=== PATIENT | male | born 1955 | race Caucasian/White ===

== ENCOUNTER 2017-10-22 19:23 | Inpatient (IN) | payer OTHER ==
[2017-10-22] MEDS ORDERED: BISACODYL (EC) 5 MG TAB PO (21:00)
[2017-10-22] MEDS ORDERED: NITROGLYCERIN (SL) 0.4 MG TAB SL (21:00)
[2017-10-22] MEDS ORDERED: DOCUSATE SODIUM 100 MG CAP PO (21:00)
[2017-10-22] MEDS ORDERED: morphine 2 MG INJ IV (21:00)
[2017-10-22] MEDS ORDERED: NACL 0.9% 3 ML SYG IV (21:00)
[2017-10-22] MEDS: SOD CHLORIDE 0.9% 1,000 ML IV (21:27)
[2017-10-22 21:59] LABS: ADD MAN DIFF? NO
[2017-10-22 22:01] LABS: BASOPHILS % 0.5 % (0.0-2.0); EOSINOPHILS # 0.3 10^3/ul (0.0-0.5); EOSINOPHILS % 3.9 % (0.0-7.0); HEMATOCRIT 38.3 % (42.0-52.0); HEMOGLOBIN 11.3 g/dl (14.0-18.0); LYMPHOCYTES # 1.2 10^3/ul (0.8-2.9); MEAN CORPUSCULAR HEMOGLOBIN 22.6 pg (29.0-33.0); MEAN CORPUSCULAR HGB CONC 29.5 g/dl (32.0-37.0); MEAN CORPUSCULAR VOLUME 76.8 fl (82.0-101.0); MEAN PLATELET VOLUME 9.7 fl (7.4-10.4); MONOCYTE # 1.2 10^3/ul (0.3-0.9); MONOCYTES % 14.9 % (0.0-11.0); NEUTROPHIL # 5.5 10^3/ul (1.6-7.5); NEUTROPHILS % 66.3 % (39.0-77.0); PLATELET COUNT 236 10^3/UL (140-415); RED BLOOD COUNT 4.99 10^6/ul (4.70-6.10); RED CELL DISTRIBUTION WIDTH 19.9 % (11.5-14.5)
[2017-10-22 22:01] LABS: WHITE BLOOD COUNT 8.3 10^3/ul (4.8-10.8)
[2017-10-22 22:20] LABS: HEMOGLOBIN A1C 6.9 % (0-5.9)
[2017-10-22 22:26] LABS: ALANINE AMINOTRANSFERASE 25 IU/L (13-69); ALBUMIN 4.1 g/dl (3.3-4.9); ALBUMIN/GLOBULIN RATIO 1.57; ALKALINE PHOSPHATASE 137 IU/L (42-121); ANION GAP 17 (8-16); ASPARTATE AMINO TRANSFERASE 16 IU/L (15-46); BILIRUBIN,INDIRECT 0.4 mg/dl (0-1.1); BILIRUBIN,TOTAL 0.4 mg/dl (0.2-1.3); BLOOD UREA NITROGEN 25 mg/dl (7-20); CALCIUM 8.8 mg/dl (8.4-10.2); CARBON DIOXIDE 28 mmol/L (21-31); CHLORIDE 101 mmol/L (97-110); CHOL/HDL RATIO 2.1 RATIO; CHOLESTEROL 56 mg/dl (100-200); CREATINE KINASE 41 IU/L (23-200); GLUCOSE 105 mg/dl (70-220); HDL CHOLESTEROL 26 mg/dl (30-78); LDL CHOLESTEROL,CALCULATED 15 mg/dl; POTASSIUM 4.3 mmol/L (3.5-5.1); SODIUM 142 mmol/L (135-144); TOTAL PROTEIN 6.7 g/dl (6.1-8.1); TRIGLYCERIDES 73 mg/dl (0-149)
[2017-10-22 22:38] LABS: TROPONIN-I 0.028 ng/ml (0.00-0.12)
[2017-10-22 22:40] LABS: CK-MB 1.23 ng/ml (0.0-2.4)
[2017-10-22] MEDS: LORAZEPAM 2 MG INJ IV (23:03)
[2017-10-23 06:02] LABS: ADD MAN DIFF? NO
[2017-10-23 06:11] LABS: WHITE BLOOD COUNT 9.3 10^3/ul (4.8-10.8)
[2017-10-23 06:11] LABS: BASOPHILS % 0.3 % (0.0-2.0); EOSINOPHILS # 0.3 10^3/ul (0.0-0.5); EOSINOPHILS % 2.9 % (0.0-7.0); HEMATOCRIT 38.8 % (42.0-52.0); HEMOGLOBIN 11.7 g/dl (14.0-18.0); LYMPHOCYTES # 1.2 10^3/ul (0.8-2.9); LYMPHOCYTES % 12.6 % (15.0-51.0); MEAN CORPUSCULAR HGB CONC 30.2 g/dl (32.0-37.0); MEAN CORPUSCULAR VOLUME 76.4 fl (82.0-101.0); MONOCYTE # 1.4 10^3/ul (0.3-0.9); MONOCYTES % 14.8 % (0.0-11.0); NEUTROPHIL # 6.5 10^3/ul (1.6-7.5); NEUTROPHILS % 69.3 % (39.0-77.0); PLATELET COUNT 243 10^3/UL (140-415); RED BLOOD COUNT 5.08 10^6/ul (4.70-6.10); RED CELL DISTRIBUTION WIDTH 19.9 % (11.5-14.5)
[2017-10-23 06:38] LABS: CREATINE KINASE 51 IU/L (23-200)
[2017-10-23 06:54] LABS: IRON 39 ug/dl (35-150)
[2017-10-23 07:03] LABS: CK INDEX 2.8; TROPONIN-I 0.035 ng/ml (0.00-0.12)
[2017-10-23 07:04] LABS: % IRON SATURATION 11 % SAT (22-52); TOTAL IRON BINDING CAPACITY 363 ug/dl (241-421)
[2017-10-23 07:06] LABS: CK-MB 1.43 ng/ml (0.0-2.4)
[2017-10-23 08:26] LABS: ANION GAP 19 (8-16); BLOOD UREA NITROGEN 25 mg/dl (7-20); CALCIUM 8.8 mg/dl (8.4-10.2); CARBON DIOXIDE 22 mmol/L (21-31); CHLORIDE 105 mmol/L (97-110); CREATININE 1.05 mg/dl (0.61-1.24); GLUCOSE 121 mg/dl (70-220); SODIUM 141 mmol/L (135-144)
[2017-10-23 08:33] LABS: POTASSIUM 5.3 mmol/L (3.5-5.1)
[2017-10-23] MEDS ORDERED: BENAZEPRIL 40 MG TAB PO (09:00)
[2017-10-23] MEDS: ASPIRIN 81 MG TAB PO ×2 (09:00→09:46)
[2017-10-23 09:01] LABS: FERRITIN 37.1 ng/ml (11.1-264.0)
[2017-10-23] MEDS: ISOSORBIDE MONONITRATE(SR)30 MG TAB PO (09:47)
[2017-10-23] MEDS: CLOPIDOGREL 75 MG TAB PO (09:48)
[2017-10-23] MEDS: ENOXAPARIN 40 MG/0.4 ML SYG SC (09:50)
[2017-10-23] MEDS ORDERED: GLUCOSE GEL 15 GRAM TUBE BUCCAL (16:30)
[2017-10-23] MEDS ORDERED: GLUCAGON 1 MG INJ IM (16:30)
[2017-10-23] MEDS ORDERED: GLUCOSE GEL 15 GRAM TUBE PO ×2 (16:30)
[2017-10-23] MEDS ORDERED: DEXTROSE 50% 50 ML SYRINGE IV ×2 (16:30)
[2017-10-23] MEDS: INSULIN ASPART [NOVOLOG] 3 ML PEN SC ×2 (17:35→21:00)
[2017-10-23 21:44] LABS: CK-MB 1.05 ng/ml (0.0-2.4)
[2017-10-23 21:51] LABS: CK INDEX 2.9; CREATINE KINASE 36 IU/L (23-200)
[2017-10-23] MEDS: ONDANSETRON 4 MG INJ IV (23:53)
[2017-10-24] MEDS: GUAIFENESIN/DM 5ML CUP PO (00:22)
[2017-10-24] MEDS: LORAZEPAM 2 MG INJ IV (00:51)
[2017-10-24] MEDS: ALPRAZOLAM 0.25 MG TAB PO ×2 (00:52→04:09)
[2017-10-24] MEDS: ACCU-CHEK XX (02:00)
[2017-10-24] MEDS: ACETAMINOPHEN 325 MG TAB PO (04:46)
[2017-10-24 08:12] LABS: ADD MAN DIFF? NO
[2017-10-24 08:15] LABS: WHITE BLOOD COUNT 8.1 10^3/ul (4.8-10.8)
[2017-10-24 08:15] LABS: BASOPHILS % 0.4 % (0.0-2.0); EOSINOPHILS # 0.2 10^3/ul (0.0-0.5); EOSINOPHILS % 2.6 % (0.0-7.0); HEMATOCRIT 37.8 % (42.0-52.0); HEMOGLOBIN 11.5 g/dl (14.0-18.0); LYMPHOCYTES # 1.2 10^3/ul (0.8-2.9); LYMPHOCYTES % 14.5 % (15.0-51.0); MEAN CORPUSCULAR HGB CONC 30.4 g/dl (32.0-37.0); MEAN CORPUSCULAR VOLUME 75.6 fl (82.0-101.0); MEAN PLATELET VOLUME 9.6 fl (7.4-10.4); MONOCYTE # 1.3 10^3/ul (0.3-0.9); MONOCYTES % 16.3 % (0.0-11.0); NEUTROPHIL # 5.4 10^3/ul (1.6-7.5); PLATELET COUNT 235 10^3/UL (140-415); RED CELL DISTRIBUTION WIDTH 19.7 % (11.5-14.5)
[2017-10-24] MEDS: CLOPIDOGREL 75 MG TAB PO (08:19)
[2017-10-24] MEDS: ASPIRIN 81 MG TAB PO (08:20)
[2017-10-24] MEDS: FUROSEMIDE 20 MG TAB PO (08:20)
[2017-10-24] MEDS: ISOSORBIDE MONONITRATE(SR)30 MG TAB PO (08:20)
[2017-10-24] MEDS: INSULIN ASPART [NOVOLOG] 3 ML PEN SC ×2 (08:27→11:50)
[2017-10-24] MEDS: ENOXAPARIN 40 MG/0.4 ML SYG SC (08:27)
[2017-10-24 08:40] LABS: ANION GAP 18 (8-16); BLOOD UREA NITROGEN 27 mg/dl (7-20); CALCIUM 9.1 mg/dl (8.4-10.2); CARBON DIOXIDE 24 mmol/L (21-31); CHLORIDE 104 mmol/L (97-110); CREATININE 1.23 mg/dl (0.61-1.24); GLUCOSE 155 mg/dl (70-220); POTASSIUM 4.8 mmol/L (3.5-5.1); SODIUM 141 mmol/L (135-144)
[2017-10-24 15:56] LABS: CREATININE, RANDOM URINE 128 mg/dL (20-370); MICROALBUMIN 52.2 mg/dL; MICROALBUMIN/CREATININE RATIO 408 (<30)
== END 2017-10-24 16:00 | disposition home or self-care (01) | DRG 312 ==
LOC: MS3 19:23 → TEL 10-23 23:02
PROVIDERS: Internal Medicine
DX: R55 Syncope and collapse (principal); N17.9 Acute kidney failure, unspecified; L97.929 Non-pressure chronic ulcer of unspecified part of left lower leg with unspecified severity; L97.919 Non-pressure chronic ulcer of unspecified part of right lower leg with unspecified severity; I50.20 Unspecified systolic (congestive) heart failure; I11.0 Hypertensive heart disease with heart failure; E11.622 Type 2 diabetes mellitus with other skin ulcer; I95.1 Orthostatic hypotension; I45.81 Long QT syndrome; D64.9 Anemia, unspecified; D32.0 Benign neoplasm of cerebral meninges; R42 Dizziness and giddiness; Z79.84 Long term (current) use of oral hypoglycemic drugs; Z79.82 Long term (current) use of aspirin; Z79.02 Long term (current) use of antithrombotics/antiplatelets
CPT/HCPCS: 70450; 76870; 80048; 80053; 80061; 82043; 82550; 82553; 82728; 82962; 83036; 83540; 84443; 84484; 85025; 93306; 93880; 97165

== ENCOUNTER 2017-10-29 22:26 | Inpatient (IN) | payer OTHER ==
[2017-10-30] MEDS ORDERED: morphine 2 MG INJ IV (00:30)
[2017-10-30] MEDS ORDERED: CEFEPIME 1GM/50 ML (PMX) 50 ML IVPB (00:30)
[2017-10-30] MEDS ORDERED: VANCOMYCIN IV PER PHARMACY XX (00:30)
[2017-10-30] MEDS ORDERED: NITROGLYCERIN (SL) 0.4 MG TAB SL (00:30)
[2017-10-30] MEDS ORDERED: ONDANSETRON 4 MG INJ IV ×2 (00:30→15:00)
[2017-10-30 00:56] LABS: ADD MAN DIFF? NO
[2017-10-30 00:57] LABS: BASOPHILS % 0.5 % (0.0-2.0); EOSINOPHILS # 0.2 10^3/ul (0.0-0.5); EOSINOPHILS % 2.6 % (0.0-7.0); HEMATOCRIT 37.1 % (42.0-52.0); HEMOGLOBIN 11.5 g/dl (14.0-18.0); LYMPHOCYTES # 1.2 10^3/ul (0.8-2.9); LYMPHOCYTES % 16.1 % (15.0-51.0); MEAN CORPUSCULAR HEMOGLOBIN 23.3 pg (29.0-33.0); MEAN CORPUSCULAR VOLUME 75.3 fl (82.0-101.0); MEAN PLATELET VOLUME 9.2 fl (7.4-10.4); MONOCYTES % 13.3 % (0.0-11.0); NEUTROPHIL # 5.1 10^3/ul (1.6-7.5); NEUTROPHILS % 67.2 % (39.0-77.0); PLATELET COUNT 200 10^3/UL (140-415); RED BLOOD COUNT 4.93 10^6/ul (4.70-6.10); RED CELL DISTRIBUTION WIDTH 20.4 % (11.5-14.5)
[2017-10-30 00:57] LABS: WHITE BLOOD COUNT 7.6 10^3/ul (4.8-10.8)
[2017-10-30 01:18] LABS: ALANINE AMINOTRANSFERASE 29 IU/L (13-69); ALBUMIN 4.3 g/dl (3.3-4.9); ALBUMIN/GLOBULIN RATIO 1.34; ALKALINE PHOSPHATASE 146 IU/L (42-121); ANION GAP 18 (8-16); ASPARTATE AMINO TRANSFERASE 19 IU/L (15-46); BILIRUBIN,INDIRECT 0.6 mg/dl (0-1.1); BILIRUBIN,TOTAL 0.6 mg/dl (0.2-1.3); BLOOD UREA NITROGEN 41 mg/dl (7-20); CALCIUM 9.4 mg/dl (8.4-10.2); CARBON DIOXIDE 26 mmol/L (21-31); CHLORIDE 101 mmol/L (97-110); CHOL/HDL RATIO 2.8 RATIO; CHOLESTEROL 69 mg/dl (100-200); CREATININE 1.81 mg/dl (0.61-1.24); GLUCOSE 129 mg/dl (70-220); HDL CHOLESTEROL 24 mg/dl (30-78); LDL CHOLESTEROL,CALCULATED 29 mg/dl; MAGNESIUM 2.1 mg/dl (1.7-2.5); PHOSPHORUS 4.3 mg/dl (2.5-4.9); POTASSIUM 4.2 mmol/L (3.5-5.1); SODIUM 141 mmol/L (135-144); TOTAL PROTEIN 7.5 g/dl (6.1-8.1); TRIGLYCERIDES 82 mg/dl (0-149)
[2017-10-30 01:28] LABS: TROPONIN-I 0.032 ng/ml (0.00-0.12)
[2017-10-30 01:34] LABS: HEMOGLOBIN A1C 6.7 % (0-5.9)
[2017-10-30] MEDS: ACCU-CHEK XX (02:00)
[2017-10-30] MEDS: VANCOMYCIN 1.75 GM in SOD CHLORIDE 0.9% 500 ML IVPB (02:26)
[2017-10-30] MEDS: HEPARIN 5,000 UNIT/0.5 ML VIAL SC ×4 (02:39→22:26)
[2017-10-30] MEDS: INSULIN ASPART [NOVOLOG] 3 ML PEN SC ×4 (08:00→21:00)
[2017-10-30] MEDS: CLOPIDOGREL 75 MG TAB PO (08:14)
[2017-10-30] MEDS: ASPIRIN 81 MG TAB PO (08:15)
[2017-10-30] MEDS: ISOSORBIDE MONONITRATE(SR)30 MG TAB PO (08:15)
[2017-10-30] MEDS ORDERED: LORAZEPAM 2 MG INJ IV (09:00)
[2017-10-30] MEDS: LORAZEPAM 2 MG INJ IV (09:17)
[2017-10-30 10:18] LABS: TROPONIN-I 0.018 ng/ml (0.00-0.12)
[2017-10-30 11:03] LABS: PREALBUMIN 11.1 mg/dl (17.6-36.0)
[2017-10-30] MEDS: SOD CHLORIDE 0.9% 1,000 ML IV (13:53)
[2017-10-30 15:59] LABS: ADD UMIC YES; UR AMORPHOUS CRYSTAL MODERATE /HPF (NONE SEEN); UR ASCORBIC ACID NEGATIVE (NEGATIVE); UR BACTERIA FEW /HPF (NONE SEEN); UR BILIRUBIN (Dip) NEGATIVE (NEGATIVE); UR BLOOD (Dip) NEGATIVE (NEGATIVE); UR CLARITY CLEAR (CLEAR); UR COLOR YELLOW (YELLOW); UR GLUCOSE (Dip) NEGATIVE (NEGATIVE); UR KETONES (Dip) NEGATIVE (NEGATIVE); UR LEUKOCYTE ESTERASE (Dip) NEGATIVE Leu/ul (NEGATIVE); UR NITRITE (Dip) NEGATIVE (NEGATIVE); UR RBC 0 /HPF (0-5); UR SPECIFIC GRAVITY (Dip) 1.015 (1.003-1.030); UR TOTAL PROTEIN (Dip) 1+ mg/dl (NEGATIVE); UR UROBILINOGEN (Dip) NEGATIVE (NEGATIVE); UR WBC 1 /HPF (0-5)
[2017-10-30 16:18] LABS: SODIUM,URINE RANDOM 110 mmol/L (30-90)
[2017-10-30] MEDS: DOCUSATE SODIUM 100 MG CAP PO (21:19)
[2017-10-31] MEDS: ACCU-CHEK XX (02:00)
[2017-10-31] MEDS ORDERED: VANCOMYCIN 1 GM 250 ML IVPB (02:00)
[2017-10-31] MEDS: GUAIFENESIN/CODEINE 5ML CUP PO (02:12)
[2017-10-31] MEDS: LORAZEPAM 2 MG INJ IV (03:38)
[2017-10-31] MEDS: SOD CHLORIDE 0.9% 1,000 ML IV (06:29)
[2017-10-31] MEDS: HEPARIN 5,000 UNIT/0.5 ML VIAL SC ×2 (06:33→13:53)
[2017-10-31] MEDS: ASPIRIN 81 MG TAB PO (09:05)
[2017-10-31] MEDS: ISOSORBIDE MONONITRATE(SR)30 MG TAB PO (09:06)
[2017-10-31] MEDS: CLOPIDOGREL 75 MG TAB PO (09:06)
[2017-10-31] MEDS: INSULIN ASPART [NOVOLOG] 3 ML PEN SC ×2 (09:07→12:00)
[2017-10-31 09:14] LABS: ADD MAN DIFF? NO
[2017-10-31 09:19] LABS: BASOPHILS % 0.5 % (0.0-2.0); EOSINOPHILS # 0.4 10^3/ul (0.0-0.5); EOSINOPHILS % 4.2 % (0.0-7.0); HEMATOCRIT 37.1 % (42.0-52.0); HEMOGLOBIN 11.5 g/dl (14.0-18.0); LYMPHOCYTES # 0.9 10^3/ul (0.8-2.9); MEAN CORPUSCULAR HEMOGLOBIN 23.5 pg (29.0-33.0); MEAN CORPUSCULAR VOLUME 75.7 fl (82.0-101.0); MEAN PLATELET VOLUME 9.7 fl (7.4-10.4); MONOCYTE # 1.1 10^3/ul (0.3-0.9); NEUTROPHIL # 6.3 10^3/ul (1.6-7.5); NEUTROPHILS % 72.1 % (39.0-77.0); PLATELET COUNT 227 10^3/UL (140-415); RED CELL DISTRIBUTION WIDTH 21.1 % (11.5-14.5)
[2017-10-31 09:19] LABS: WHITE BLOOD COUNT 8.8 10^3/ul (4.8-10.8)
[2017-10-31 09:36] LABS: ANION GAP 17 (8-16); BLOOD UREA NITROGEN 34 mg/dl (7-20); CALCIUM 9.2 mg/dl (8.4-10.2); CARBON DIOXIDE 25 mmol/L (21-31); CHLORIDE 105 mmol/L (97-110); CREATININE 1.31 mg/dl (0.61-1.24); GLUCOSE 150 mg/dl (70-220); MAGNESIUM 1.9 mg/dl (1.7-2.5); PHOSPHORUS 4.1 mg/dl (2.5-4.9); POTASSIUM 4.8 mmol/L (3.5-5.1); SODIUM 142 mmol/L (135-144)
[2017-10-31] MEDS ORDERED: TAMSULOSIN (SR) 0.4 MG CAP PO (21:00)
== END 2017-10-31 16:08 | disposition home or self-care (01) | DRG 682 ==
LOC: MS4 10-30 04:18
DX: N17.9 Acute kidney failure, unspecified (principal); I50.43 Acute on chronic combined systolic (congestive) and diastolic (congestive) heart failure; I42.9 Cardiomyopathy, unspecified; I11.0 Hypertensive heart disease with heart failure; E11.9 Type 2 diabetes mellitus without complications; R07.9 Chest pain, unspecified; F15.10 Other stimulant abuse, uncomplicated; R33.9 Retention of urine, unspecified; K40.90 Unilateral inguinal hernia, without obstruction or gangrene, not specified as recurrent; R07.89 Other chest pain; Z79.4 Long term (current) use of insulin; Z91.19 Patient's noncompliance with other medical treatment and regimen; Z86.73 Personal history of transient ischemic attack (TIA), and cerebral infarction without residual deficits
CPT/HCPCS: 71045; 76775; 80048; 80053; 80061; 81001; 82962; 83036; 83735; 84100; 84134; 84300; 84443; 84484; 85025

== ENCOUNTER 2017-11-03 18:37 | Emergency (ER) | payer OTHER ==
[2017-11-03 20:07] LABS: ADD MAN DIFF? NO
[2017-11-03 20:10] LABS: BASOPHIL # 0.1 10^3/ul (0.0-0.1); BASOPHILS % 0.5 % (0.0-2.0); EOSINOPHILS # 0.3 10^3/ul (0.0-0.5); EOSINOPHILS % 3.1 % (0.0-7.0); HEMATOCRIT 43.1 % (42.0-52.0); HEMOGLOBIN 12.9 g/dl (14.0-18.0); LYMPHOCYTES # 1.2 10^3/ul (0.8-2.9); LYMPHOCYTES % 11.2 % (15.0-51.0); MEAN CORPUSCULAR HEMOGLOBIN 23.1 pg (29.0-33.0); MEAN CORPUSCULAR HGB CONC 29.9 g/dl (32.0-37.0); MEAN CORPUSCULAR VOLUME 77.1 fl (82.0-101.0); MEAN PLATELET VOLUME 9.3 fl (7.4-10.4); MONOCYTE # 1.5 10^3/ul (0.3-0.9); MONOCYTES % 14.1 % (0.0-11.0); NEUTROPHIL # 7.4 10^3/ul (1.6-7.5); NEUTROPHILS % 70.8 % (39.0-77.0); PLATELET COUNT 269 10^3/UL (140-415); RED BLOOD COUNT 5.59 10^6/ul (4.70-6.10)
[2017-11-03 20:10] LABS: WHITE BLOOD COUNT 10.5 10^3/ul (4.8-10.8)
[2017-11-03 20:26] LABS: ANION GAP 21 (8-16); BLOOD UREA NITROGEN 37 mg/dl (7-20); CALCIUM 9.4 mg/dl (8.4-10.2); CARBON DIOXIDE 21 mmol/L (21-31); CHLORIDE 104 mmol/L (97-110); GLUCOSE 98 mg/dl (70-220); POTASSIUM 4.5 mmol/L (3.5-5.1); SODIUM 141 mmol/L (135-144)
== END 2017-11-03 20:40 | disposition home or self-care (01) ==
LOC: E/R 18:37
DX: T83.038A Leakage of other urinary catheter, initial encounter (principal); I50.9 Heart failure, unspecified; I25.10 Atherosclerotic heart disease of native coronary artery without angina pectoris; E11.9 Type 2 diabetes mellitus without complications; N50.89 Other specified disorders of the male genital organs; R10.9 Unspecified abdominal pain; Y73.2 Prosthetic and other implants, materials and accessory gastroenterology and urology devices associated with adverse incidents; Z79.82 Long term (current) use of aspirin
CPT/HCPCS: 80048; 85025; 99283